=== PATIENT | female | born 1985 | race Caucasian/White ===

== ENCOUNTER 2021-06-08 11:58 | Emergency (ER) | payer OTHER ==
[2021-06-08 13:52] LABS: BASOPHIL 0.6 % (0-2); EOSINOPHIL 0.8 % (0-5); HCT 42.1 % (37.0-47.0); HGB 14.9 g/dl (12.5-16.0); LYMPHOCYTE 28.9 % (15-48); MCH 32.3 pg (25.0-31.0); MCHC 35.4 g/dL (32.0-36.0); MCV 91.3 fL (78.0-100.0); MONOCYTE 7.2 % (0-12); MPV 8.4 fL (6.0-9.5); NRBC 0; PLT 345 K/uL (150-400); RBC 4.61 M/uL (4.20-5.40); RDW 11.5 % (11.5-14.0); WBC 10.3 K/uL (4.0-10.5)
[2021-06-08 14:16] LABS: ALBUMIN 3.7 g/dL (3.4-5.0); BILIRUBIN - TOTAL 0.2 mg/dL (0.2-1.0); BUN/CREAT RATIO (CALC) 11.2 RATIO; CREATININE 0.89 mg/dL (0.51-0.95); GLOBULIN (CALCULATION) 3.3 g/dL
[2021-06-08] MEDS ORDERED: ETODOLAC500 MG PO (14:44)
== END 2021-06-08 15:15 | disposition home or self-care (01) ==
LOC: FER 11:58
PROVIDERS: Emergency Medicine
DX: U07.1 COVID-19 (principal); J12.82 Pneumonia due to coronavirus disease 2019; R09.1 Pleurisy; F17.200 Nicotine dependence, unspecified, uncomplicated
CPT/HCPCS: 36415; 71045; 80053; 84484; 85025; 85379; 93005; J1885; J2930; U0002